=== PATIENT | female | born 1985 | race Two or more races ===

== ENCOUNTER 2023-10-05 05:20 | Day surgery (SDC) | payer OTHER ==
[~2023-10-05 05:20] MED LIST: SYNTHROID50 MCG PO
[2023-10-05] MEDS ORDERED: POVIDONE-IODINE 118 ML BOTT TOP ONE (07:04)
[2023-10-05] MEDS ORDERED: POVIDONE-IODINE SCRUB 118 ML BOTT TOP ONE (07:45)
[2023-10-05] MEDS ORDERED: IBU600 MG PO (09:03)
== END 2023-10-05 12:55 | disposition home or self-care (01) ==
LOC: CIR.AMB 05:20
PROVIDERS: ATTEND Obstetrics & Gynecology Gynecology
DX: N84.0 Polyp of corpus uteri (principal)